=== PATIENT | female | born 1980 | race Caucasian/White ===

== ENCOUNTER → 2016-03-03 | Outpatient (CLI) | payer OTHER ==
[~2016-03-03] MED LIST: PRENTAB26 PO; PYRI100T4 PO
== END | disposition home or self-care (01) ==
LOC: C.LABSPEC 13:57
PROVIDERS: ATTEND Obstetrics & Gynecology
DX: Z34.83 Encounter for supervision of other normal pregnancy, third trimester (principal)

== ENCOUNTER 2016-03-31 08:23 | Inpatient (IN) | payer OTHER, BC ==
[~2016-03-31] VITALS: Ht 170.2 cm; Wt 81.4 kg
[2016-03-31] MEDS ORDERED: LACTATED RINGER'S 1000ML 1,000 ML IV PRN (08:45)
[2016-03-31 09:19] LABS: HEMATOCRIT 31.2 % (37-47); MEAN CORPUSCULAR HEMOGLOBIN 28.5 pg (25-34); MEAN CORPUSCULAR HGB CONC 34.3 g/dl (32-36); MEAN PLATELET VOLUME 9.9 fL (7.4-10.4); PLATELET COUNT 263 K/uL (130-400); RED BLOOD COUNT 3.76 M/uL (4.2-5.4); WHITE BLOOD COUNT 10.71 K/uL (4.8-10.8)
[2016-03-31] MEDS ORDERED: PYRI100T4 PO (12:37)
[2016-03-31] MEDS ORDERED: PRENTAB26 PO (12:37)
[2016-03-31 13:05] VITALS: Ht 170.2 cm; Wt 81.4 kg
[2016-03-31] MEDS ORDERED: BUPIVACAINE 0.25% 30 ML VIAL ONE (17:37)
[2016-03-31] MEDS ORDERED: EpHEDrine SULFATE INJ 50 MG/ML AMP ONE (17:37)
[2016-03-31] MEDS ORDERED: FENTANYL 2MCG/ML ROPIV 1.25MG/ML 100ML BAG EPI ONE (17:37)
[2016-03-31] MEDS ORDERED: FENTANYL CITRATE INJ 50 MCG/1 ML 2 ML VIAL ONE (17:37)
[2016-03-31] MEDS: LACTATED RINGER'S 1000ML 1,000 ML IV SCH ×3 (18:23→23:08)
[2016-03-31] MEDS ORDERED: NALOXONE HCL INJ 1 MG in SODIUM CHLORIDE 0.9% 1000ML 1,000 ML IV PRN (18:36)
[2016-03-31] MEDS ORDERED: LACTATED RINGER'S 1000ML 500 ML IV PRN ×2 (18:36→20:14)
[2016-03-31] MEDS ORDERED: NALOXONE HCL INJ 0.4 MG/1 ML VIAL/CARP IV PRN (18:45)
[2016-03-31] MEDS ORDERED: EpHEDrine SULFATE INJ 50 MG/ML AMP IV PRN (18:45)
[2016-03-31] MEDS ORDERED: DiphenhydrAMINE HCL 50 MG/ML VIAL IV PRN (18:45)
[2016-03-31] MEDS ORDERED: NALBUPHINE HCL INJ 10 MG/ML AMP IV PRN (18:45)
[2016-03-31] MEDS ORDERED: ONDANSETRON INJ 2 MG/ML 2 ML VIAL IV PRN (18:45)
[2016-03-31] MEDS ORDERED: OXYTOCIN 30 UNITS/500ML NSS IV PRN (20:15)
[2016-03-31] MEDS ORDERED: ACETAMINOPHEN 650 MG SUPP PR STA (21:25)
[2016-03-31] MEDS ORDERED: ACETAMINOPHEN 650 MG SUPP PR ONE (21:29)
[2016-03-31] MEDS: FENTANYL 2MCG/ML ROPIV 1.25MG/ML 100ML BAG EPI PRN (23:10)
[2016-04-01] MEDS: FENTANYL 2MCG/ML ROPIV 1.25MG/ML 100ML BAG EPI PRN ×2 (03:15→07:08)
[2016-04-01] MEDS: LACTATED RINGER'S 1000ML 1,000 ML IV SCH ×2 (04:56→06:18)
[2016-04-01] MEDS ORDERED: LANOLIN OINT EXT PRN ×2 (11:30)
[2016-04-01] MEDS ORDERED: SUPERCREAM 0.870 % 15GM JAR EXT PRN (11:30)
[2016-04-01] MEDS ORDERED: HYDROCORTISONE ACETATE 25 MG SUPP PR PRN (11:30)
[2016-04-01] MEDS ORDERED: OXYTOCIN 30 UNITS/500ML NSS IV PRN (11:30)
[2016-04-01] MEDS ORDERED: BENZOCAINE 20% AER SPR 82.5 GM CAN EXT PRN (11:30)
[2016-04-01] MEDS ORDERED: ACETAMINOPHEN/CODEINE 300/30MG TAB PO PRN ×2 (11:30)
--- NOTE | 2016-04-01 12:07 | DELIVERY SUMMARY ---
DATE OF OPERATION: 04/01/2016 DATE OF DELIVERY: 04/01/2016. PRE-DELIVERY DIAGNOSES: 1. 35-year-old G3,P1-0-1-1 at 40 weeks 1 day. 2. Spontaneous labor. 3. History of easy bruising. POST-DELIVERY DIAGNOSES: Same. PROCEDURE: Spontaneous vaginal delivery. FINDINGS: Viable male , Apgars 7 and 9, weight pending. ESTIMATED BLOOD LOSS: 300 mL. ANESTHESIA: Epidural. DESCRIPTION OF DELIVERY: The patient progressed to complete with epidural anesthesia. She then spontaneously vaginally delivered a viable male . The head delivered in the left occiput anterior position. The head delivered followed by the anterior shoulder. The posterior shoulder did not deliver immediately and the anterior arm was delivered. The posterior shoulder soon followed. No nuchal cord was noted. The body was delivered. The baby was placed on mother's abdomen and spontaneous cry was heard. The cord was doubly clamped and cut. Baby was handed off to the waiting pediatrics team for further evaluation. A segment of cord was retained for cord gasses. Cord blood was obtained. The placenta was delivered spontaneously intact with a 3-vessel cord. Pitocin was given and the uterus began to clamp down. Excellent hemostasis was observed. Following delivery of the placenta 2 separate large pieces of amniotic membranes were delivered. They were noted to be meconium stained. An additional sweep of the uterus and vagina reveals no additional amniotic membrane visible. The vagina and cervix and perineum were inspected and no lacerations were noted however the entire vulva is very swollen due to pushing and manipulation during the pushing process. The mother and baby tolerated the delivery well. Sponge and instrument counts were correct x2 at the conclusion of the delivery. Excellent hemostasis was achieved. The patient and baby are recovering in the room. I attest to the content of the Intraoperative Record and any orders documented therein. Any exceptio ns are noted below.
--- NOTE | 2016-04-01 14:06 | Anesthesia Procedure Note ---
Anesthesia Epidural Removal Nt Date & Time Apr 01, 2016 at 14:06 Vital Signs Pain Intensity: 0.0 Notes Mental Status: alert / awake / arousable, participated in evaluation Nausea / Vomiting: adequately controlled Pain: adequately controlled Airway Patency, RR, SpO2: stable & adequate BP & HR: stable & adequate Hydration State: stable & adequate Neuraxial Anesthesia: was administered Anesthetic Complications: no major complications apparent, pt satisfied with anesthetic care Epidural: removed without complications, with tip intact
[2016-04-01 14:32] VITALS: BP 115/71; PULSE 82; TEMP 37; O2SAT 98
[2016-04-01 16:00] VITALS: BP 112/70; PULSE 101; TEMP 36.8; O2SAT 98
[2016-04-01] MEDS: IBUPROFEN 600 MG TAB PO PRN ×2 (17:20→22:01)
[2016-04-01 20:00] VITALS: BP 103/64; PULSE 98; TEMP 36.3; O2SAT 98
[2016-04-01] MEDS: DOCUSATE SODIUM 100 MG CAP PO SCH (20:12)
[2016-04-01 23:45] VITALS: BP 94/54; PULSE 97; TEMP 36.5
[2016-04-02 04:20] VITALS: BP 93/50; PULSE 97; TEMP 36.6
[2016-04-02] MEDS ORDERED: FERROUS SULFATE 325 MG TAB PO SCH (08:00)
--- NOTE | 2016-04-02 08:10 | Progress Note ---
Subjective Apr 02, 2016. Subjective conversation w/ patient Ambulation: ambulating normally Voiding: no voiding problems Passing Gas: Yes Diet Tolerance: Regular Diet Lochia: Small Feeding Type: Breast Feeding Review of Systems Constitutional: No chills, No fever Respiratory: No cough, No shortness of breath Cardiac: No chest pain, No edema Abdomen: No nausea, No pain, No vomiting Objective Vital Signs Date Time Temp Pulse Resp B/P Pulse Ox O2 Delivery O2 Flow Rate FiO2 04/02/16 04:20 36.6 97 18 93/50 Room Air 04/01/16 23:45 36.5 97 16 94/54 Room Air 04/01/16 23:45 Room Air 04/01/16 20:00 36.3 98 16 103/64 98 Room Air 04/01/16 16:00 36.8 101 18 112/70 98 Room Air 04/01/16 16:00 98 Room Air 04/01/16 14:32 37.0 82 18 115/71 98 Room Air Physical Exam General Appearance: WELL-APPEARING, NO APPARENT DISTRESS Respiratory/Chest: lungs clear, no respiratory distress Cardiovascular: regular rate, rhythm, no murmur Abdomen: normal bowel sounds, non tender, soft Fundus: Firm, Non-Tender, Relation to Umbilicus (at umbilicus) Extremities: non-tender, no calf tenderness Laboratory Results Last 24 Hours Test 04/02/16 04:44 Assessment and Plan Post- Day#: 1 Continue Routine Care: s/p Day 1 - vital signs reviewed and wnl - Hgb reviewed and 10.7 - Blood type: O+, GBS-. Rubella immune - Pt doing well clinically - Encourage ambulation, monitor and control pain with motrin prn, resume regular diet, monitor lochia - Encourage breast feeding - Pt counselled on discharge instructions - PATIENT DISCHARGE TODAY Resident Physician Supervision Note: I was present with Dr. Lara during the history and exam. I discussed the case with the resident and agree with the findings and plan as documented in the note. Any exceptions or clarifications are listed here: PPD#1, feeling well , requesting discharge home. Discharge instructions discussed, FU 6w. Documented By: Conchita Jeffery
--- NOTE | 2016-04-02 08:12 | Discharge Instructions ---
Discharge Instructions Admission Reason for Admission: R/O Rupture Of Membranes Discharge Discharge Diagnosis / Problem: Spontaneous Vaginal Delivery Discharge Goals Goal(s): Routine recovery after delivery Medications Continue Dispensed Medications: supercream, dermaplast, tucks Activity Recommendations Activity Limitations: per Instructions/Follow-up section . Instructions / Follow-Up Instructions / Follow-Up ACTIVITY RECOMMENDATIONS: * Gradual return to full activity over the next 2-3 weeks. * No lifting - nothing heavier than baby over the next 2-3 weeks. * Do not engage in vigorous exercise, sexual activity or sports until cleared by your physician. * Do not drive or operate any motorized equipment until cleared by your physician. * You may shower/bathe daily. MEDICATIONS: For discomfort or pain, you may use Acetaminophen (Tylenol), Ibuprofen (Advil), or Naproxen (Aleve) following the package directions. For constipation you may use Colace following the package directions. BREAST CARE: If you are not breast feeding: * Wear a supportive bra 24 hours a day for one to two weeks. * Avoid stimulating your breasts and nipples as much as possible during the first few weeks after delivery. * When taking a shower, have the warm water hit your back, not breasts. * When your breasts feel full, apply ice packs. Usually three to four times a day helps ease the discomfort. * Take a mild pain medication (Tylenol / Motrin) when you are uncomfortable. If breast feeding: * Use breast milk to lubricate nipples. Lansinoh cream may be used for sore nipples. You do not need to remove cream prior to breast feeding. If using a different brand of cream, check the label for directions regarding removal of cream prior to nursing. * Wear a supportive bra. * If having problems with breasts or breast feeding, call a clinical documentation consultant or your health care provider. EPISIOTOMY CARE: After delivery, if you have an episiotomy (stitches), the following steps will ease discomfort and aid healing. * For the first 24 hours after delivery, place ice packs next to your episiotomy to help reduce swelling. * After the first 24 hour-period, sitz baths, either portable or in the tub, are suggested. A shower with a shower arm sprayed over the episiotomy may be comforting. * Arely care should be done after each voiding and bowel movement. Squirt warm water from a plastic bottle over the perineum (region of the body between the anus and urinary opening) and pat dry. * Use Dermoplast to ease discomfort. Shake container. [place]sworth directly over the episiotomy. Place a Tucks on a clean sanitary pad next to your episiotomy. SPECIAL CARE INSTRUCTIONS: When you are discharged from the hospital, it is important for you to follow the instructions listed below: * During the first week at home, you should be able to care for yourself and your baby. In addition, the usual light household activities are encouraged. * Limit your activities to the way you feel. Do not try to clean the house or move furniture. Be sensible. * If you actively engage in sports and have done so up until the time of your delivery, you may resume these activities as soon as you feel able. This may take up to one month or even longer. Use good judgment. * Continue to take your vitamins for at least six weeks after the of your baby. * Your diet need not be limited unless you were on a special diet before your delivery. Breast-feeding mothers need around 2500 calories per day and at least 64-80 ounces of fluid per day (8 to 10 glasses). * You should eat foods from the four major food groups. Crash diets or fad diets are to be avoided. Eating lean meats, fresh fruits and vegetables, low-fat dairy products, high fiber foods and a regular exercise program, will help you get back to your pre- weight without putting your health at risk. * Constipation is sometimes a problem after delivery. Take a mild laxative as needed. If breast feeding, Milk of Magnesia is acceptable to use. You may use a suppository or Fleets enema if no episiotomy. * A daily shower or tub bath is suggested. Be sure to thoroughly and gently dry the perineum. * A bloody vaginal discharge will usually continue until around four weeks post . A small amount of bleeding may continue for as long as six weeks. Vaginal discharge changes from the bright red bleeding after delivery to pink then brownish and finally yellowish-pink before becoming white and disappearing. * Bleeding may increase with activity. Your first period may come in 4-8 weeks. If you are breast feeding, your period may be delayed even longer. * Switzer (sex) can begin whenever both you and your partner feel comfortable and do not have any form of genital infection. It is recommended that you wait at least six weeks for internal and external healing to occur. If you have questions, please talk to your health care practitioner. A condom should be used to prevent infection and . * Foreplay, gentle intercourse and lubrication is very important the first several times to prevent pain. A water-based lubricant such as K-Y jelly or Astroglide may be used. * If you have RH negative blood and your baby is RH positive, you will receive RHOGAM by injection prior to discharge. The nurse will give you a card to keep with you that has the date and place that you received RHOGAM after delivery. * During your care, you had a Rubella screen done to check for the presence of rubella antibodies in your blood. If your test was negative, you will receive a Rubella vaccine prior to discharge. This vaccine may cause a fever, soreness at the injection site and flu-like symptoms. If these symptoms persist, notify your health care practitioner. is not advised for one month after a Rubella vaccine. * Verbalizes understanding of car seat law as reviewed with patient nursing. * Car Seat hand-out given and reviewed with patient by nursing. * Shaken baby information reviewed with patient by nursing. Call you doctor if: * Heavy bleeding (saturating several pads an hour) or passing clots the size of your fist. * A fever >101 degrees F (38.3 degrees C) on two occasions four hours apart and /or chills. * Unusual pain in the pelvic or vaginal areas. * "Baby Blues" lasting longer than two weeks. If you have any questions or concerns, call your health care practitioner at . FOLLOW UP VISIT: * Please call the office at to schedule a 6 week examination. It is important you keep this appointment. It is important for you to make arrangements for either yearly or twice yearly check-ups thereafter. Current Hospital Diet Patient's current hospital diet: Regular OB Diet, Gluten Free Diet Discharge Diet Recommended Diet: Regular OB Diet Pending Studies Studies pending at discharge: no Medical Emergencies . Who to Call and When: Medical Emergencies: If at any time you feel your situation is an emergency, please call 911 immediately. . Non-Emergent Contact Non-Emergency issues call your: Primary Care Provider, [employer] Instrument Technician . . "Provider Documentation" section prepared by Antonio Lara. VTE Core Measure Inpt VTE Proph given/why not?: Treatment not indicated
[2016-04-02 08:30] VITALS: BP 120/75; PULSE 102; TEMP 36.2
[2016-04-02] MEDS: DOCUSATE SODIUM 100 MG CAP PO SCH (08:35)
[2016-04-02] MEDS: IBUPROFEN 600 MG TAB PO PRN ×2 (08:38→15:04)
[2016-04-02 08:50] LABS: HEMATOCRIT 24.3 % (37-47)
[2016-04-02 10:20] VITALS: BP_DIAS 75; PULSE 102; TEMP 36.2
[2016-04-02 15:45] VITALS: BP 102/64; PULSE 93; TEMP 36.4; O2SAT 99
== END 2016-04-02 17:08 | disposition home or self-care (01) | DRG 775 ==
LOC: C.LD 08:23 → C.OPB 08:23 → EDSTATUS 08:32 → C.LD 08:46 → C.OPB 08:46 → C.OBG 04-01 15:00
PROVIDERS: ADMIT Obstetrics & Gynecology; ATTEND Obstetrics & Gynecology
PROC: 10E0XZZ Delivery of Products of Conception, External Approach (ICD-10-PCS; principal; 2016-04-01)
DX: O48.0 Post-term pregnancy (principal); Z3A.40 40 weeks gestation of pregnancy; Z37.0 Single live birth; O76 Abnormality in fetal heart rate and rhythm complicating labor and delivery